=== PATIENT | female | born 1990 | race Caucasian/White ===

== ENCOUNTER 2017-10-22 15:51 | Outpatient (CLI) | payer OTHER ==
[2017-10-22 17:24] LABS: #Eosinphils 0.1 thou/uL (0.0-0.7); #Lymphocytes 1.7 thou/uL (1.20-3.40); #Monocytes 0.3 thou/uL (0.11-0.59); #Neutrophils 4.2 thou/uL (1.40-6.50); %Basophils 0.6 % (0.0-1.0); %Eosinophils 2.3 % (0.0-10.0); %Monocytes 5.2 % (0.0-10.0); %Neutrophils 65.9 % (42.0-75.0); Hemoglobin 12.1 g/dL (12.0-16.0); Mean Corpuscular HGB CONC 32.9 g/dL (32.0-36.0); Mean Corpuscular Hemoglobin 27.7 pg (27.0-31.0); Mean Corpuscular Volume 84.4 fl (81.0-99.0); Mean Platelet Volume 8.2 fL (7.4-10.4); Platelet Count 251 thou/uL (130-400); RBC Distribution Width 13.3 % (11.5-14.5); Red Blood Cell (RBC) Count 4.37 mill/uL (4.20-5.40); White Blood Cell (WBC) Count 6.4 thou/uL (4.8-10.8)
[2017-10-22 18:32] LABS: BHCG - Serum Negative (NEGATIVE); Pregs Control Background? CLEAR/WHITE (CLR/WHITE); Pregs Control Bar Appear? YES (CONTROL BAR)
== END 2017-10-22 15:52 | disposition home or self-care (01) ==
LOC: LABBT 15:51
PROVIDERS: ATTEND Orthopaedic Surgery
DX: Z01.812 Encounter for preprocedural laboratory examination (principal); S83.241D Other tear of medial meniscus, current injury, right knee, subsequent encounter
CPT/HCPCS: 84703; 85025

== ENCOUNTER 2017-10-30 06:15 | Day surgery (SDC) | payer OTHER ==
[2017-10-22 15:59] VITALS: BMI 39.4
[2017-10-30] MEDS ORDERED: PROPOFOL 20 ML ONE (06:29)
[2017-10-30] MEDS ORDERED: Fentanyl 100 MCG/2 ML VIAL ONE (06:44)
[2017-10-30] MEDS ORDERED: CEFAZOLIN/Water 2 GM/20 ML SYRINGE ONE (06:52)
[2017-10-30] MEDS ORDERED: Promethazine HCl 25 MG/ML VIAL ONE (08:45)
--- NOTE | 2017-10-30 08:46 | OP ---
PREOPERATIVE DIAGNOSIS: Medial meniscus tear, right knee. POSTOPERATIVE DIAGNOSIS: Medial meniscus tear, right knee. PROCEDURE: Arthroscopic partial medial meniscectomy. FINDINGS AT SURGERY: No arthritis, intact ACL, posterior horn medial meniscus tear. NARRATIVE REPORT: The patient was taken to the operating where general anesthesia was induced. Righ t leg was prepped and draped in the usual sterile fashion. Scope was placed in the lateral portal an d probe was placed in medial portal. Findings were listed as above. I removed the posterior horn of the medial meniscus and posterior portion of the medial meniscus using basket forceps and smoothed u sing a 4-0 full radius resector. I probed and confirmed that meniscus rim was stable. Knee was irri gated. Sterile dressings applied.
[2017-10-30] MEDS ORDERED: Ondansetron ODT 4 MG TAB ONE (11:21)
== END 2017-10-30 11:34 | disposition home or self-care (01) ==
LOC: SDC 06:15
PROVIDERS: ATTEND Orthopaedic Surgery
PROC: 0SBC4ZZ Excision of Right Knee Joint, Percutaneous Endoscopic Approach (ICD-10-PCS; principal; 2017-10-30)
DX: S83.241A Other tear of medial meniscus, current injury, right knee, initial encounter (principal)
CPT/HCPCS: 96374; G8978-GP-CI; G8979-GP-CI; G8980-GP-CI; J2550; J2704; J3010; Q0162

== ENCOUNTER 2020-09-16 16:45 | Inpatient (IN) | payer BC, SELFPAY ==
[2020-09-16] MEDS ORDERED: Midazolam HCl 2 mg/2 ml Vial ONE ×3 (17:09→20:46)
[2020-09-16 17:56] LABS: #Eosinphils 0.1 thou/uL (0.0-0.7); #Lymphocytes 1.2 thou/uL (1.20-3.40); #Monocytes 0.4 thou/uL (0.11-0.59); #Neutrophils 7.4 thou/uL (1.40-6.50); %Basophils 0.3 % (0.0-1.0); %Eosinophils 1.2 % (0.0-10.0); %Lymphocytes 13.3 % (21.0-51.0); %Monocytes 4.8 % (0.0-10.0); %Neutrophils 80.4 % (42.0-75.0); Hemoglobin 13.1 g/dL (12.0-16.0); Mean Corpuscular HGB CONC 33.5 g/dL (32.0-36.0); Mean Corpuscular Hemoglobin 30.9 pg (27.0-31.0); Mean Corpuscular Volume 92.3 fL (78.0-98.0); Mean Platelet Volume 8.7 fL (7.4-10.4); Platelet Count 233 thou/uL (130-400); Red Blood Cell (RBC) Count 4.23 mill/uL (4.20-5.40); White Blood Cell (WBC) Count 9.2 thou/uL (4.8-10.8)
[2020-09-16 18:11] LABS: ALT (SGPT) 45 U/L (8-55); AST (SGOT) 31 U/L (5-34); Albumin 4.1 g/dL (3.5-5.0); Alkaline Phosphatase 72 U/L (40-110); Anion Gap 14 mmol/L (10-20); BUN (Urea Nitrogen) 13 mg/dL (7.0-18.7); Bilirubin, Total 0.2 mg/dL (0.2-1.2); CK (CPK) 125 U/L (29-168); Calc. Creatinine Clearance 0 mL/min (70-130); Calcium 8.4 mg/dL (7.8-10.44); Carbon Dioxide 17 mmol/L (22-29); Chloride 112 mmol/L (98-107); Globulin 2.9 g/dL (2.4-3.5); Glucose 101 mg/dL (70-105); Lipase 23 U/L (8-78); Magnesium 1.9 mg/dL (1.6-2.6); Potassium 3.8 mmol/L (3.5-5.1); Sodium 139 mmol/L (136-145)
[2020-09-16 18:12] LABS: Acetaminophen Less than 6.0 mcg/mL (10.0-30.0); Alcohol Less than 10 mg/dL (Less than 10); Salicylate Less than 8.0 mg/dL (15.0-30.0)
[2020-09-16] MEDS ORDERED: Lorazepam 2 MG/ML VIAL ONE (19:20)
[2020-09-16] MEDS ORDERED: Cefepime 2 GM VIAL ONE (19:53)
[2020-09-16 20:36] LABS: CRP (Inflammatory) Less than 0.50 mg/dL (= or < 0.5); Lipase 21 U/L (8-78)
[2020-09-16] MEDS ORDERED: diphenhydrAMINE 50 MG/ML VIAL ONE (20:46)
[2020-09-16] MEDS ORDERED: Lidocaine 1% PF 5 ML VIAL ONE (20:46)
[2020-09-16 20:56] LABS: Bacteria/HPF None Seen HPF (None Seen); Bilirubin Negative (Negative); Blood, Urine Negative (Negative); Clarity Clear (Clear); Glucose, Urine (Dipstick) Normal (Negative); Ketone, Urine Negative (Negative); Leukocyte 25 Leu/uL (Negative); Nitrite Negative (Negative); Pregnancy Test - Urine (BHCG) Negative (Negative); Pregu Control Background? CLEAR/WHITE (CLR/WHITE); Pregu Control Bar Appear? YES (CONTROL BAR); Protein, Urine (Dipstick) 10 mg/dL (Neg-Trace); RBC/HPF 0-3 HPF (0-3); Squamous Epithelial 0-3 HPF (0-3); Urobilinogen Normal mg/dL (Less than 2); WBC/HPF 0-3 HPF (0-3)
[2020-09-16] MEDS ORDERED: VANCOMYCIN 2 GRAM/400 ML BAG 2 GM in Premix Bag 1 BAG IVPB SCH (21:00)
[2020-09-16 21:04] LABS: Medtox Reader # READER 4; THC/Cannabinoid Screen Detected (NotDetected)
[2020-09-16 21:05] LABS: Amphetamine Not Detected (NotDetected); Barbiturates Screen Not Detected (NotDetected); Benzodiazepine Screen Detected (NotDetected); Cocaine Metabolite Screen Not Detected (NotDetected); Medtox Control Line Valid? VALID (VALID); Methadone Not Detected (NotDetected); Methamphetamine Not Detected (NotDetected); Opiate Screen Not Detected (NotDetected); Oxycodone Screen Not Detected (NotDetected); Phencyclidine (PCP) Not Detected (NotDetected); Tricyclic Screen Not Detected (NotDetected)
[2020-09-16 21:32] LABS: SARS-CoV-2 NAA Rapid Test Not Detected (NotDetected)
[2020-09-16 21:43] LABS: Color Of CSF Supernatant COLORLESS (Colorless); Tube # 2; Unspun CSF Color COLORLESS (Colorless)
[2020-09-16 21:54] LABS: CSF, Glucose 61 mg/dl (40-70); CSF, Protein 25 mg/dL (15-40)
[2020-09-16 21:58] LABS: CSF Source CSF; Clarity Clear (Clear); Tube # 4
[2020-09-16 22:02] LABS: CSF Source CSF; Clarity Clear (Clear); Tube # 1
[2020-09-16] MEDS ORDERED: Ondansetron PF 4 MG/2 ML Vial IVP PRN (23:04)
[2020-09-16] MEDS ORDERED: Ondansetron ODT 4 MG TAB PO PRN (23:04)
[2020-09-16] MEDS ORDERED: Lorazepam 2 MG/ML VIAL SLOW IVP PRN (23:16)
[2020-09-17] MEDS ORDERED: levETIRAcetam in NS 1,000 MG in Premix Bag 1 BAG IVPB SCH ×2 (01:15→09:00)
[2020-09-17 01:53] VITALS: BMI 35.9
[2020-09-17 05:36] LABS: #Eosinphils 0.2 thou/uL (0.0-0.7); #Lymphocytes 2.2 thou/uL (1.20-3.40); #Monocytes 0.4 thou/uL (0.11-0.59); #Neutrophils 4.2 thou/uL (1.40-6.50); %Basophils 0.2 % (0.0-1.0); %Eosinophils 2.8 % (0.0-10.0); %Lymphocytes 31.6 % (21.0-51.0); %Monocytes 5.9 % (0.0-10.0); %Neutrophils 59.5 % (42.0-75.0); Hemoglobin 11.4 g/dL (12.0-16.0); Mean Corpuscular HGB CONC 33.1 g/dL (32.0-36.0); Mean Corpuscular Hemoglobin 30.5 pg (27.0-31.0); Mean Corpuscular Volume 92.3 fL (78.0-98.0); Mean Platelet Volume 8.6 fL (7.4-10.4); Platelet Count 204 thou/uL (130-400); RBC Distribution Width 11.8 % (11.5-14.5); Red Blood Cell (RBC) Count 3.75 mill/uL (4.20-5.40); White Blood Cell (WBC) Count 7.1 thou/uL (4.8-10.8)
[2020-09-17 05:59] LABS: Anion Gap 12 mmol/L (10-20); BUN (Urea Nitrogen) 8 mg/dL (7.0-18.7); Calc. Creatinine Clearance 161 mL/min (70-130); Calcium 7.4 mg/dL (7.8-10.44); Carbon Dioxide 17 mmol/L (22-29); Chloride 115 mmol/L (98-107); Glucose 83 mg/dL (70-105); Potassium 3.5 mmol/L (3.5-5.1); Sodium 140 mmol/L (136-145)
[2020-09-17] MEDS: Enoxaparin Sodium 40 MG/0.4 ML SYRINGE SC SCH (08:41)
[2020-09-17] MEDS ORDERED: Calcium Carbonate 500 MG ChewTAB PO SCH (13:00)
[2020-09-17] MEDS ORDERED: Magnevist 469MG/ML 20 ML VIAL ONE (13:31)
[2020-09-17] MEDS: Acetaminophen 325 MG TAB PO PRN ×3 (16:03→21:51)
[2020-09-17] MEDS ORDERED: Calcium Gluconate 4.6 MEQ in Sodium Chloride 0.9% 100 ML IVPB SCH (16:28)
[2020-09-17] MEDS ORDERED: Pantoprazole 40 MG VIAL IVP SCH ×2 (16:28→18:00)
[2020-09-17] MEDS ORDERED: Sodium Chloride 0.9% (PF) 10 ML VIAL FS PRN (16:45)
[2020-09-17] MEDS ORDERED: Promethazine 25 MG TAB PO SCH (18:45)
[2020-09-17] MEDS ORDERED: Cyproheptadine 4 MG TAB PO SCH (21:00)
[2020-09-17] MEDS ORDERED: Topiramate 100 MG TAB PO SCH (21:00)
[2020-09-17] MEDS: Calcium Gluconate 4.6 MEQ in Sodium Chloride 0.9% 100 ML IVPB SCH ×2 (21:54→21:57)
[2020-09-18] MEDS: CeleCOXIB 100 MG CAP PO PRN ×2 (00:05→12:33)
[2020-09-18] MEDS: Promethazine 25 MG TAB PO SCH ×4 (00:06→17:30)
[2020-09-18] MEDS: Acetaminophen 325 MG TAB PO PRN ×2 (08:53→17:31)
[2020-09-18] MEDS: Enoxaparin Sodium 40 MG/0.4 ML SYRINGE SC SCH (08:54)
[2020-09-18] MEDS ORDERED: DULoxetine 30 MG CAP PO SCH (09:00)
[2020-09-18 15:43] VITALS: BP 144/90; TEMP 98.7
== END 2020-09-18 18:56 | disposition home or self-care (01) | DRG 880 ==
LOC: ERS 16:45 → 2SE 20:43
PROVIDERS: ADMIT Student in an Organized Health Care Education/Training Program; ATTEND Internal Medicine
DX: F44.5 Conversion disorder with seizures or convulsions (principal); G92 Toxic encephalopathy; E87.2 Acidosis; F41.9 Anxiety disorder, unspecified; T40.7X5A Adverse effect of cannabis (derivatives), initial encounter; M35.00 Sjogren syndrome, unspecified; Z20.822 Contact with and (suspected) exposure to COVID-19; F12.129 Cannabis abuse with intoxication, unspecified; F32.9 Major depressive disorder, single episode, unspecified; Z90.710 Acquired absence of both cervix and uterus
CPT/HCPCS: 0240U; 36415; 51701; 62270; 70450; 70553; 80048; 80053; 80306; 80307; 81003; 81015; 81025; 82306; 82550; 82945; 83605; 83690; 83735; 84157; 84443; 84484; 85025; 85379; 86140; 87040; 87070; 87086; 87205; 89051; 93005; 95712; 95819; 95957; 96365; 96367; 96375; 96376; A9579; C9113; J0133; J0692; J1200; J1650; J1953; J2001; J2060; J2250; J3370; J3490; Q0162; Q0169